=== PATIENT | male | born 2000 | race Caucasian/White ===

== ENCOUNTER 2018-03-06 12:55 | Emergency (ER) | payer OTHER ==
[~2018-03-06] VITALS: Ht 185.4 cm; Wt 65.0 kg
--- NOTE | 2018-03-06 13:45 | REP ---
Right shoulder series: Three views. History: Injury in a fall. Findings: Three views right shoulder demonstrate normal alignment of the glenohumeral and acromioclavicular joints. Periarticular soft tissues are unremarkable. Impression: Negative radiographs of the right shoulder. Electronically Signed by Alfonzo Degroot MD 03/06/2018 01:36 P
[2018-03-06] MEDS ORDERED: IBUP80TA PO ×2 (14:37→14:53)
[2018-03-06 14:38] VITALS: BP 111/52
[2018-03-06] MEDS ORDERED: ACETAMINOPHEN TAB 650MG DOSE (2X325MG) PO ONE (14:45)
[2018-03-06] MEDS ORDERED: traMADol 50 MG TAB PO ONE (14:45)
== END 2018-03-06 14:55 | disposition home or self-care (01) ==
LOC: M ED 12:55
DX: S43.401A Unspecified sprain of right shoulder joint, initial encounter (principal); W10.9XXA Fall (on) (from) unspecified stairs and steps, initial encounter; Y92.89 Other specified places as the place of occurrence of the external cause; Y93.9 Activity, unspecified; Y99.1 Military activity